=== PATIENT | female | born 2000 | race Two or more races ===

== ENCOUNTER 2020-03-30 18:26 | Emergency (ER) | payer SELFPAY ==
[~2020-03-30] VITALS: Ht 167.6 cm; Wt 136.1 kg
--- NOTE | 2020-03-30 19:31 | NUR ---
pt reports coming into ed today for being 10 weeks and abdominal pain, pt reports lower abdomen cramping and light bleeding since yesterday evening. pt ambulated to and from restroom with a smooth and steady gait, ua sent. now resting on gurney, at bs. bed in lowest, rails engaged, call light on lap, placed on spo2/bp monitoring, wctm.
[2020-03-30 19:33] LABS: BASOPHILS % (AUTO) 1 % (0-1); EOSINOPHILS % (AUTO) 2 % (1-7); LYMPHOCYTES % (AUTO) 30 % (22-44); MEAN CORPUSCULAR HEMOGLOBIN 27.8 pg (27.0-34.8); MEAN CORPUSCULAR HGB CONC 33.3 g/dL (32.4-35.8); MEAN PLATELET VOLUME 9.8 fL (7.4-10.4); MONOCYTES % (AUTO) 7 % (2-9); NEUTROPHILS % (AUTO) 61 % (42-75); PLATELET COUNT 275 x10^3/uL (130-400); RED BLOOD COUNT 4.74 x10^6/uL (3.82-5.3); RED CELL DISTRIBUTION WIDTH 13.5 % (9.6-15.2)
[2020-03-30 19:36] LABS: MD NO
[2020-03-30 19:40] LABS: ALANINE AMINOTRANSFERASE 172 U/L (12-78); ALBUMIN 3.6 g/dL (3.4-5.0); ANION GAP 7 mmol/L (5-15); CALCIUM 8.7 mg/dL (8.5-10.1); CHLORIDE 109 mmol/L (98-107); CREATININE 0.58 mg/dL (0.55-1.02)
[2020-03-30 20:00] LABS: ALKALINE PHOSPHATASE 147 U/L (45-117); BILIRUBIN,TOTAL 0.3 mg/dL (0.2-1.0)
[2020-03-30 20:08] LABS: MICROSCOPIC INDICATED
[2020-03-30] MEDS ORDERED: CEFDINIR 300 MG CAPSULE PO ONE (21:00)
[2020-03-30] MEDS ORDERED: CEFDINIR 300 MG CAPSULE ONE (21:05)
--- NOTE | 2020-03-30 21:40 | NUR ---
PT NAD, RESTING ON GURNEY, APPEARS COMFORTABLE, BED IN LOWEST, RAILS ENGAGED, CALL LIGHT ON LAP, AT BS, WAITING FOR US READ. WCTM
[2020-03-30 22:02] VITALS: BP 110/64
--- NOTE | 2020-03-30 22:03 | NUR ---
Patient given discharge instructions and they have confirmed that they understand the instructions. Patient ambulatory with steady gait. NAD, DENIES ADDITIONAL QUESTIONS OR NEEDS AT THIS TIME. NO PERSONAL BELONGINGS LEFT IN ROOM AFTER DC.
== END 2020-03-30 22:11 | disposition home or self-care (01) ==
LOC: ED 18:56
DX: O20.0 Threatened abortion (principal); O23.11 Infections of bladder in pregnancy, first trimester; R10.2 Pelvic and perineal pain; Z3A.10 10 weeks gestation of pregnancy
CPT/HCPCS: 36415; 76801; 80053; 81001; 84702; 85025; 86901; 87086; 99284